=== PATIENT | male | born 1985 | race Hispanic/Latino ===

== ENCOUNTER 2018-09-04 19:11 | Emergency (ER) | payer SELFPAY ==
[~2018-09-04] VITALS: Ht 160 cm; Wt 66.0 kg
[2018-09-04 21:40] VITALS: BP 125/85
== END 2018-09-04 21:40 | disposition home or self-care (01) | DRG 156 ==
LOC: ED 19:11
DX: S02.2XXA Fracture of nasal bones, initial encounter for closed fracture (principal); W51.XXXA Accidental striking against or bumped into by another person, initial encounter; Y93.66 Activity, soccer; Y92.9 Unspecified place or not applicable